=== PATIENT | female | born 1940 | race Caucasian/White ===

== ENCOUNTER → 2016-10-24 | Day surgery (SDC) | payer MEDICARE ==
[~2016-10-24] MED LIST: ARTH650T OR; BUPIVACAINE HCL PF 0.5% 30 ML VIAL ONE; ESTR42.5V PV; ISOSULFAN BLUE 50 MG/5 ML VIAL SQ ONE; KETOROLAC TROMETHAMINE 30 MG/ML (IVP) VIAL ONE; LACTATED RINGER'S 1000 ML INJ 1,000 ML ONE; LEVO100T4 PO; LISI-366 PO; MIDAZOLAM HCL 2 MG/2 ML VIAL ONE; ONDANSETRON HCL 4 MG/2 ML VIAL IV PUSH ONE; PROPOFOL 200 MG/20 ML AMP IV ONE; SODIUM CHLORIDE 0.9% 250 ML ADDBAG IV ONE; SODIUM CHLORIDE 0.9% INJ 10 ML ONE; VANCOMYCIN 500 MG VIAL ONE; VANCOMYCIN HCL 1000 MG VIAL ONE; VENL150T14 PO; oxyCODONE/ACETAMINOPHEN 5 MG/325 MG TAB ONE
--- NOTE | 2016-10-24 15:46 | TN ---
cc: MALLORY AGUIAR DATE OF SURGERY: 10/24/2016. PRINCIPAL DIAGNOSIS: Left breast cancer PROCEDURE PERFORMED: Left axillary sentinel lymph node biopsy and left breast needle-localized lumpectomy. SURGEON: Mallory Aguiar MD. ANESTHESIA: General via LMA device. INDICATIONS FOR THE PROCEDURE: The patient is a 75-year-old female with an 8 mm invasive mucinous carcinoma. Her tumor was estrogen and progesterone positive and HER2/justin equivocal, but FISH was positive. Because of the small size of the tumor, adjuvant chemotherapy is controversial and she now presents for definitive surgery. FINDINGS AT SURGERY: Three sentinel lymph nodes were removed. #1 had a count of 3516, #2 had a count of 327, and #3 had a count of 194. The lymph nodes did not look suspicious. Specimen mammogram did demonstrate an intact wire and the biopsy clip and lesion were in the excised tissue. DESCRIPTION OF THE PROCEDURE IN DETAIL: After informed consent was obtained and site verification was performed, the patient was brought to the radiology suite where she underwent peritumoral radionuclide injection as well as needle localization of her prior biopsy site. She was then brought to the major operating room where she underwent general anesthesia via LMA device. She was given a single dose of IV vancomycin due to multiple antibacterial allergies and sequential compression hose were placed. The left breast and arm were prepped and draped in sterile fashion. Two mL of half-strength Lymphazurin were injected in the subareolar left breast and a 5-minute massage was performed. An incision was anesthetized at the inferior aspect of the left axillary hairline using 0.5% Marcaine plain. Both sharp and electrocautery dissection were performed until the clavipectoral fascia was divided and the level I axilla was entered. Three mid level I sentinel nodes were identified although the hottest lymph node was quite low in the axilla near the axillary tail of Jesus. Each of the nodes was circumferentially dissected free from surrounding structures using the harmonic scalpel with the counts as noted. The background count was 6. Some adjacent axillary tissue was sent as a permanent specimen and hemostasis was easily obtained with the harmonic scalpel. The wound was closed using interrupted 3-0 Vicryl subcutaneous sutures and a 4-0 Monocryl subcuticular suture. Attention was then turned to the left breast where the lesion was identified at 5 o'clock 5 cm from the nipple. An inframammary crease incision was anesthetized and incised sharply and both sharp and electrocautery dissection were performed until the wire entry point through the skin was identified and secured with a hemostat. Sharp and electrocautery dissection were then performed circumferentially around the wire and the specimen was oriented with two sutures laterally, one long suture anteriorly, and one short suture superiorly. Inspection of the specimen off the field did demonstrate that the inferior and posterior margins appeared close. Each of these was re-excised with a stitch on the new margin and they were sent as separate permanent specimens. It should be noted that the posterior margin was the pectoralis muscle. Hemostasis was easily obtained with electrocautery and the wound was closed using interrupted 3-0 Vicryl subcutaneous sutures and a 4-0 Monocryl subcuticular suture. It should also be noted that the specimen was sent to mammography with the findings as noted and was then sent for permanent pathologic evaluation. All sponge and needle counts were correct at the conclusion of the case and the patient was extubated in the operating room and brought to the recovery room in good condition. MD YESI Figueroa/ROSSI /3:19 PM /3:38 PM
== END | disposition home or self-care (01) ==
LOC: ESDC 10:28
PROVIDERS: ATTEND Surgery
DX: D05.12 Intraductal carcinoma in situ of left breast (principal)
CPT/HCPCS: 00400; 01610; 19125; 38525; 82948; 88307; J1885; J2250; J2405; J3010; J3370; J7120; Q9968